=== PATIENT | female | born 1990 | race Caucasian/White ===

== ENCOUNTER → 2016-05-16 | Outpatient (REF) | payer OTHER ==
[~2016-05-16] MED LIST: FERR325T3 PO; MOTR200T44 PO; PRENTAB7 PO; TYLE325T5 PO; Tylenol PO; VITAPRTA PO
== END ==
LOC: M SFHCLERA 13:35
PROVIDERS: ATTEND Nurse Practitioner Family
DX: J02.9 Acute pharyngitis, unspecified (principal)

== ENCOUNTER 2025-01-22 19:55 | Emergency (ER) | payer OTHER ==
[~2025-01-22] VITALS: Ht 160 cm; Wt 73.0 kg
[2025-01-22 19:58] VITALS: TEMP 97.9
[2025-01-22] MEDS: NS (Normal Saline) 0.9% 1,000 ML IV ONE (21:20)
[2025-01-22 21:31] LABS: PLATELET COUNT, AUTOMATED 296 10^3/uL (150-450)
[2025-01-22 21:57] LABS: CALCIUM LEVEL 9.2 MG/DL (8.5-10.1); CARBON DIOXIDE LEVEL 29 MMOL/L (20-31); CHLORIDE LEVEL 104 MMOL/L (98-107); CREATININE FOR GFR 0.82 MG/DL (0.55-1.30); GLOMERULAR FILTRATION RATE > 90.0 (>60); POTASSIUM SERUM 4.5 MMOL/L (3.5-5.1); SODIUM LEVEL 142 MMOL/L (136-145)
[2025-01-22 22:21] LABS: HCG, SERUM QUALITATIVE NEGATIVE (NEGATIVE)
[2025-01-22 22:30] VITALS: O2SAT 100
[2025-01-22] MEDS: KETOROLAC 30 MG/ML 1 ML VIAL IV ONE (22:47)
[2025-01-22 22:54] VITALS: BP 137/89
== END 2025-01-22 23:04 | disposition home or self-care (01) ==
LOC: M ED 19:55
DX: N92.0 Excessive and frequent menstruation with regular cycle (principal); D64.9 Anemia, unspecified; Z88.8 Allergy status to other drugs, medicaments and biological substances; Z79.1 Long term (current) use of non-steroidal anti-inflammatories (NSAID); Z79.899 Other long term (current) drug therapy; Z79.810 Long term (current) use of selective estrogen receptor modulators (SERMs)
CPT/HCPCS: 76856; 80048; 84703; 85027; 96361; 96374; 99284; J1885

== ENCOUNTER 2025-03-03 16:15 | Emergency (ER) | payer OTHER ==
[~2025-03-03] VITALS: Ht 160 cm; Wt 72.7 kg
[2025-03-03] MEDS ORDERED: HYDR1CAP25 (16:36)
[2025-03-03] MEDS ORDERED: TRAZ1TAB11 (16:36)
[2025-03-03] MEDS ORDERED: ATOG60TA (16:36)
[2025-03-03] MEDS ORDERED: ZOLO100T PO (16:36)
[2025-03-03] MEDS ORDERED: UBRO100T (16:36)
[2025-03-03] MEDS ORDERED: ALBU8.5H (16:36)
[2025-03-03] MEDS ORDERED: APRI0.37 PO (16:36)
[2025-03-03] MEDS ORDERED: CETI10CH PO (16:36)
[2025-03-03 19:35] LABS: BASO # 0.0 10^3/uL (0.0-0.2); BASO % 0.8 % (0.0-1.0); EOS # 0.3 10^3/uL (0.0-0.5); EOS % 5.8 % (0.0-3.0); LYMPH # 2.1 10^3/uL (1.5-5.0); LYMPH % 42.3 % (24.0-44.0); MONO # 0.6 10^3/uL (0.0-0.8); MONO % 12.0 % (2.0-8.0); NEUTROPHILS # 2.0 10^3/uL (1.5-8.5); NEUTROPHILS % 38.9 % (36.0-66.0); PLATELET COUNT, AUTOMATED 268 10^3/uL (150-450)
[2025-03-03 19:58] LABS: ALT/SGPT 18 U/L (7.0-40); AST/SGOT 34 U/L (<34); CALCIUM LEVEL 8.9 MG/DL (8.5-10.1); CARBON DIOXIDE LEVEL 30 MMOL/L (20-31); CHLORIDE LEVEL 103 MMOL/L (98-107); CREATININE FOR GFR 0.87 MG/DL (0.55-1.30); GLOMERULAR FILTRATION RATE > 90.0 (>60); HCG, SERUM QUALITATIVE NEGATIVE (NEGATIVE); POTASSIUM SERUM 4.0 MMOL/L (3.5-5.1); SODIUM LEVEL 141 MMOL/L (136-145)
[2025-03-03 20:00] LABS: KETONE, URINE AUTO RFX NEGATIVE (NEGATIVE); LEUKOCYTE ESTERASE UR AUTO RFX NEGATIVE (NEGATIVE); MUCUS, URINE RFX SMALL (NEGATIVE); NITRITE, URINE AUTO RFX NEGATIVE (NEGATIVE); RBC, URINE AUTO RFX 1 /HPF (0-3); SQUAM EPITHELIAL CELL UR AURFX 3 /HPF (0-6); WBC, URINE AUTO RFX 1 /HPF (0-3)
[2025-03-04] MEDS ORDERED: ISOVUE-370 76% 100 ML VIAL As Ordered ONE (00:39)
[2025-03-04] MEDS: MAG SULF 1GM/100ML (MAG RUN) 1 GM in IV 1 EA IV ONE (01:16)
[2025-03-04] MEDS: ACETAMINOPHEN *IV* 1,000 MG in IV 1 EA IV ONE (01:16)
[2025-03-04] MEDS: dexAMETHasone 4 MG/ML 1 ML VIAL IV ONE (01:16)
[2025-03-04] MEDS: NS (Normal Saline) 0.9% 1,000 ML IV ONE (01:17)
[2025-03-04] MEDS ORDERED: PRED10TA2 PO (03:47)
[2025-03-04 04:57] VITALS: BP 109/61; TEMP 98.5; O2SAT 98
== END 2025-03-04 05:00 | disposition home or self-care (01) ==
LOC: M ED 16:15
DX: K92.2 Gastrointestinal hemorrhage, unspecified (principal); K51.90 Ulcerative colitis, unspecified, without complications; Z88.8 Allergy status to other drugs, medicaments and biological substances; Z91.040 Latex allergy status; Z91.018 Allergy to other foods; Z79.1 Long term (current) use of non-steroidal anti-inflammatories (NSAID); Z79.51 Long term (current) use of inhaled steroids; Z79.899 Other long term (current) drug therapy; Z79.52 Long term (current) use of systemic steroids
CPT/HCPCS: 74174; 80048; 80076; 81001; 83690; 84703; 85025; 87507; 96365; 96366; 96367; 96375; 99284; J0134; J1100; J2765; J3475; Q9967